=== PATIENT | male | born 1995 | race Caucasian/White ===

== ENCOUNTER 2020-11-30 18:05 | Emergency (ER) | payer BC ==
[~2020-11-30] VITALS: Ht 180.3 cm; Wt 91.4 kg
[2020-11-30 18:13] VITALS: BP 134/86
[2020-11-30] MEDS ORDERED: PENI500T2 PO (19:30)
== END 2020-11-30 19:32 | disposition home or self-care (01) ==
LOC: ER 18:06
DX: K08.89 Other specified disorders of teeth and supporting structures (principal); Z79.2 Long term (current) use of antibiotics
CPT/HCPCS: 99283